=== PATIENT | male | born 1970 | race Caucasian/White ===

== ENCOUNTER 2017-07-30 17:21 | Emergency (ER) | payer BC ==
[~2017-07-30] VITALS: Ht 175.3 cm; Wt 110.0 kg
[2017-07-30 17:27] VITALS: PULSE 110; RESP 13; TEMP 99.7; O2SAT 99
[2017-07-30] MEDS ORDERED: METR-1 PO (18:05)
--- NOTE | 2017-07-30 18:27 | PD ---
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 Time Seen by Provider: 18:22 Travel History International Travel<30 days: No Contact w/Intl Traveler<30days: No Traveled to known affect area: No History of Present Illness HPI PATIENT HAS A PICC LINE AND PATIENT WAS CONCERNED BECAUSE WHEN HE FLUSHED IT, HE NOTICED FLUID TRICKLING DOWN HIS ARM (ON THE SURFACE)...DENIES ARM PAIN, OR ANY OTHER COMPLAINT AT THIS POINT PFSH Past Medical History Diminished Hearing: No Gastrointestinal Disorders: Yes Tetanus Vaccination: > 5 Years Influenza Vaccination: No Past Surgical History Abdominal Surgery: Yes (laparascopy for drainage liver ) Social History Alcohol Use: Yes (ocassionally) Tobacco Use: No (25 years ago) Substance Use: No Allergies-Medications (Allergen,Severity, Reaction): Coded Allergies: No Known Allergies (Unverified , 07/30/17) Reported Meds & Prescriptions Reported Meds & Active Scripts Active Reported Flagyl (Metronidazole) 500 Mg Tab 500 Mg PO TID Review of Systems Except as stated in HPI: all other systems reviewed are Neg Physical Exam Narrative GENERAL: SKIN: Warm and dry. HEAD: Atraumatic. Normocephalic. EYES: Pupils equal and round. No scleral icterus. No injection or drainage. ENT: No nasal bleeding or discharge. Mucous membranes pink and moist. NECK: Trachea midline. No JVD. CARDIOVASCULAR: Regular rate and rhythm. RESPIRATORY: No accessory muscle use. Clear to auscultation. Breath sounds equal bilaterally. GASTROINTESTINAL: Abdomen soft, non-tender, nondistended. MUSCULOSKELETAL: Extremities without clubbing, cyanosis, or edema. No obvious deformities. RT ARM HAS A PICC LINE NEUROLOGICAL: Awake and alert. No obvious cranial nerve deficits. Motor grossly within normal limits. Five out of 5 muscle strength in the arms and legs. Normal speech. PSYCHIATRIC: Appropriate mood and affect; insight and judgment normal. Data Data Last Documented VS Vital Signs Date Time Temp Pulse Resp B/P (MAP) Pulse Ox O2 Delivery O2 Flow Rate FiO2 07/30/17 17:27 99.7 110 13 99 MDM Medical Decision Making Medical Screen Exam Complete: Yes Emergency Medical Condition: Yes Medical Record Reviewed: Yes Differential Diagnosis N/A Narrative Course HEPLOCK WAS LOOSE, ONCE TIGHTEN AND DRESSING CHANGED, NO E/O INFILTRATION/ CELLULITIS OR STREAKING. PT WILL BE D/C Diagnosis Primary Impression: PICC LINE CARE Patient Instructions: General Instructions, How to Care for Your Peripherally Inserted Central Catheter (DC) Disposition: 01 DISCHARGE HOME Condition: Stable Lino Hubbard MD Jul 30, 2017 18:27
[2017-07-30 18:34] VITALS: BP 124/83; TEMP 97.8
== END 2017-07-30 18:34 | disposition home or self-care (01) ==
LOC: NEPE 17:21
DX: T82.594A Other mechanical complication of infusion catheter, initial encounter (principal)
CPT/HCPCS: 99282